=== PATIENT | male | born 1990 ===

== ENCOUNTER 2017-06-19 15:56 | Emergency (ER) | payer OTHER ==
[2017-06-19 16:39] VITALS: BP 113/73; PULSE 60; RESP 18; TEMP 98.7; O2SAT 100
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
== END 2017-06-19 18:31 | disposition home or self-care (01) ==
LOC: C.ER 15:56
DX: S09.90XA Unspecified injury of head, initial encounter (principal); V89.2XXA Person injured in unspecified motor-vehicle accident, traffic, initial encounter